=== PATIENT | female | born 1985 | race Caucasian/White ===

== ENCOUNTER 2016-11-12 11:22 | Emergency (ER) | payer MEDICAID ==
[~2016-11-12] VITALS: Ht 152.4 cm; Wt 47.7 kg
[2016-11-12 13:26] LABS: PLATELET COUNT 230 x10^3mcL (130-400); RED CELL DISTRIBUTION WIDTH 14.1 % (11.5-14.5)
[2016-11-12 13:49] LABS: CALCIUM 8.7 mg/dL (8.5-10.1); CARBON DIOXIDE 27.3 mmol/L (21-32); CHLORIDE SERUM 103 mmol/L (98-107); CREATININE SERUM 0.6 mg/dL (0.6-1.0); GFR1 > 60 mL/min; GLUCOSE SERUM 99 mg/dL (74-106); POTASSIUM SERUM 3.9 mmol/L (3.5-5.1); SODIUM SERUM 140 mmol/L (136-145)
[2016-11-12 14:04] LABS: ALBUMIN 4.2 g/dL (3.4-5.0); ALKALINE PHOSPHATASE 72 U/L (46-116); ALT/SGPT 23 U/L (14-59); AST/SGOT 19 U/L (15-37); BILIRUBIN TOTAL 0.51 mg/dL (0.20-1.00); LIPASE 80 IU/L (73-393); TOTAL PROTEIN, SERUM 6.9 g/dL (6.4-8.2)
[2016-11-12 15:44] VITALS: BP 112/46
== END 2016-11-12 15:44 | disposition home or self-care (01) ==
LOC: ED 11:22
PROVIDERS: Emergency Medicine
DX: R51 Headache (principal); R10.9 Unspecified abdominal pain
CPT/HCPCS: J1885; J2405; J7030

== ENCOUNTER 2016-11-14 04:06 | Emergency (ER) | payer MEDICAID ==
[2016-11-14 06:11] VITALS: BP 108/83
== END 2016-11-14 06:11 | disposition home or self-care (01) ==
LOC: ED 04:06
DX: R42 Dizziness and giddiness (principal); R11.0 Nausea; R63.0 Anorexia
CPT/HCPCS: J1885; J2550

== ENCOUNTER 2017-01-15 14:25 | Inpatient (IN) | payer MEDICAID ==
[~2017-01-15] VITALS: Ht 154.9 cm; Wt 51.9 kg
[2017-01-15 18:41] LABS: CALCIUM 8.4 mg/dL (8.5-10.1); CARBON DIOXIDE 25.6 mmol/L (21-32); CHLORIDE SERUM 103 mmol/L (98-107); CREATININE SERUM 0.6 mg/dL (0.6-1.0); GFR1 > 60 mL/min; GLUCOSE SERUM 97 mg/dL (74-106); SODIUM SERUM 137 mmol/L (136-145)
[2017-01-15 18:42] LABS: BASOPHIL % 0.1 % (0-2); PLATELET COUNT 233 x10^3mcL (130-400); RED CELL DISTRIBUTION WIDTH 12.6 % (11.5-14.5)
[2017-01-15 18:43] LABS: ALBUMIN 3.9 g/dL (3.4-5.0); ALKALINE PHOSPHATASE 76 U/L (46-116); ALT/SGPT 54 U/L (14-59); AST/SGOT 40 U/L (15-37); BILIRUBIN TOTAL 0.38 mg/dL (0.20-1.00); TOTAL PROTEIN, SERUM 7.3 g/dL (6.4-8.2)
[2017-01-15 18:45] LABS: CHOLESTEROL 133 mg/dL (<200)
[2017-01-15 22:45] VITALS: BP 117/79
[2017-01-15 22:57] VITALS: BP 117/79
[2017-01-15 22:59] LABS: MAGNESIUM 2.1 mg/dL (1.8-2.4); PHOSPHOROUS 2.9 mg/dL (2.5-4.9)
[2017-01-15 23:08] LABS: T3 TOTAL 0.81 ng/mL
[2017-01-15 23:13] LABS: FREE T4 0.97 ng/dL (0.76-1.46); FREE THYROXINE INDEX 2.6 ug/dL (1.4-4.5); T4(THYROXINE) 7.2 ug/dL (4.7-13.3)
[2017-01-16 05:22] VITALS: BP 94/56
[2017-01-16 10:02] VITALS: BP 102/63
[2017-01-16 14:45] VITALS: BP 123/73
[2017-01-16 17:00] VITALS: BP 92/54
[2017-01-16 21:21] VITALS: BP 117/77
[2017-01-17 05:43] VITALS: BP 98/55
[2017-01-17 07:12] LABS: BASOPHIL % 0.4 % (0-2); PLATELET COUNT 206 x10^3mcL (130-400); RED CELL DISTRIBUTION WIDTH 13.2 % (11.5-14.5)
[2017-01-17 07:35] LABS: ALBUMIN 3.4 g/dL (3.4-5.0); ALKALINE PHOSPHATASE 59 U/L (46-116); ALT/SGPT 31 U/L (14-59); AST/SGOT 19 U/L (15-37); BILIRUBIN TOTAL 0.38 mg/dL (0.20-1.00); CARBON DIOXIDE 25.3 mmol/L (21-32); CHLORIDE SERUM 105 mmol/L (98-107); CREATININE SERUM 0.5 mg/dL (0.6-1.0); GFR1 > 60 mL/min; GLUCOSE SERUM 77 mg/dL (74-106); POTASSIUM SERUM 3.8 mmol/L (3.5-5.1); SODIUM SERUM 140 mmol/L (136-145); TOTAL PROTEIN, SERUM 6.3 g/dL (6.4-8.2)
[2017-01-17 09:21] VITALS: BP 104/55
[2017-01-17 10:17] VITALS: BP 104/55
[2017-01-17] MEDS ORDERED: MOT600 PO (12:23)
[2017-01-17] MEDS ORDERED: ZOF4 PO (12:59)
[2017-01-17 13:32] VITALS: BP 106/69
== END 2017-01-17 14:25 | disposition home or self-care (01) | DRG 52 ==
LOC: ED 14:25 → DU 21:24
PROVIDERS: Specialist; ADMIT Family Medicine
DX: G92 Toxic encephalopathy (principal); H93.19 Tinnitus, unspecified ear; T40.4X5A Adverse effect of other synthetic narcotics, initial encounter; N83.202 Unspecified ovarian cyst, left side; K52.9 Noninfective gastroenteritis and colitis, unspecified; R51 Headache; Z68.21 Body mass index [BMI] 21.0-21.9, adult; Y92.009 Unspecified place in unspecified non-institutional (private) residence as the place of occurrence of the external cause
CPT/HCPCS: 83880; 84439; G0480; J1885; J2060; J7030; Q0092; Q9966; Q9967

== ENCOUNTER 2017-01-23 07:46 | Emergency (ER) | payer MEDICAID ==
[~2017-01-23] VITALS: Ht 152.4 cm; Wt 46.3 kg
[~2017-01-23 07:46] MED LIST: MOT600 PO; ZOF4 PO
[2017-01-23 14:43] VITALS: BP 109/64
== END 2017-01-23 14:43 | disposition home or self-care (01) ==
LOC: ED 07:46
DX: R42 Dizziness and giddiness (principal)
CPT/HCPCS: J1885; J3030; J8597; Q0162

== ENCOUNTER 2017-07-11 21:15 | Emergency (ER) | payer MEDICAID ==
[~2017-07-11] VITALS: Ht 157.5 cm; Wt 47.2 kg
[2017-07-11 21:28] VITALS: Ht 157.5 cm; Wt 47.2 kg
[2017-07-11 22:26] LABS: BASOPHIL % 0.1 % (0-2); PLATELET COUNT 199 x10^3mcL (130-400); RED CELL DISTRIBUTION WIDTH 13.5 % (11.5-14.5)
[2017-07-11 22:38] LABS: CALCIUM 8.8 mg/dL (8.5-10.1); CARBON DIOXIDE 25.7 mmol/L (21-32); CHLORIDE SERUM 100 mmol/L (98-107); CREATININE SERUM 0.7 mg/dL (0.6-1.0); GFR1 > 60 mL/min; GLUCOSE SERUM 107 mg/dL (74-106); POTASSIUM SERUM 3.4 mmol/L (3.5-5.1); SODIUM SERUM 138 mmol/L (136-145)
[2017-07-11 22:42] LABS: ALBUMIN 4.2 g/dL (3.4-5.0); ALKALINE PHOSPHATASE 75 U/L (46-116); AST/SGOT 19 U/L (15-37); BILIRUBIN TOTAL 0.52 mg/dL (0.20-1.00); TOTAL PROTEIN, SERUM 7.5 g/dL (6.4-8.2)
[2017-07-11 23:00] LABS: ALT/SGPT 23 U/L (14-59)
[2017-07-11 23:29] LABS: microscopic required? YES; urine erythrocyte 3+ (NEGATIVE)
[2017-07-12 01:12] VITALS: BP 106/55
== END 2017-07-12 01:12 | disposition home or self-care (01) ==
LOC: ED 21:15
PROVIDERS: Emergency Medicine
DX: J09.X2 Influenza due to identified novel influenza A virus with other respiratory manifestations (principal); N39.0 Urinary tract infection, site not specified
CPT/HCPCS: 87804; J7030

== ENCOUNTER 2018-10-10 11:57 | Emergency (ER) | payer MEDICAID ==
[~2018-10-10] VITALS: Ht 160 cm; Wt 49.9 kg
[2018-10-10 12:02] VITALS: Ht 160 cm; Wt 49.9 kg
[2018-10-10 12:50] VITALS: BP 112/68
== END 2018-10-10 12:50 | disposition home or self-care (01) ==
LOC: ED 11:57
DX: R51 Headache (principal); R05 Cough; J02.9 Acute pharyngitis, unspecified; R11.0 Nausea; F41.9 Anxiety disorder, unspecified

== ENCOUNTER 2019-04-21 09:36 | Emergency (ER) | payer MEDICAID ==
[~2019-04-21] VITALS: Ht 149.9 cm; Wt 49.9 kg
[2019-04-21 09:52] VITALS: BP 134/82; Ht 149.9 cm; Wt 49.9 kg
[2019-04-21 10:35] LABS: microscopic required? YES; urine erythrocyte 1+ (NEGATIVE)
== END 2019-04-21 10:59 | disposition home or self-care (01) ==
LOC: ED 09:36
PROVIDERS: Emergency Medicine
DX: N39.0 Urinary tract infection, site not specified (principal)

== ENCOUNTER 2019-09-29 19:50 | Emergency (ER) | payer MEDICAID ==
[~2019-09-29] VITALS: Ht 157.5 cm; Wt 50.8 kg
[2019-09-29 19:59] VITALS: Ht 157.5 cm; Wt 50.8 kg
[2019-09-29 21:11] VITALS: BP 137/88
== END 2019-09-29 21:11 | disposition home or self-care (01) ==
LOC: ED 19:50
DX: G43.909 Migraine, unspecified, not intractable, without status migrainosus (principal); R11.0 Nausea
CPT/HCPCS: J0780; J1885